=== PATIENT | female | born 1970 | race Caucasian/White ===

== ENCOUNTER → 2020-10-24 10:50 | Outpatient (CLI) | payer BC, SELFPAY ==
--- NOTE | ~2020-10-24 | US_ITS ---
EXAMINATION: US soft tissue abdomen EXAM DATE: 10/24/2020 11:34 INDICATION: Intra-abdominal and pelvic swelling, mass and lump, TECHNIQUE: Multiple grayscale and Doppler images of the right upper quadrant soft tissue region were obtained (by a technologist who performed the scan) and subsequently reviewed. There is no prior cally dy for comparison. FINDINGS: Scanning along the right upper quadrant anterior symptomatic region demonstrates no evidence of abdom inal wall defect, hernia or encapsulated lipoma. Imaging also performed during Valsalva maneuvers . A rtifact from bowel gas identified deep to the abdominal wall. IMPRESSION: 1. Unremarkable right anterior abdominal soft tissue ultrasound. Reviewed, dictated and finalized at location A.
--- NOTE | ~2020-10-24 | US_ITS ---
EXAMINATION: US thyroid DATE: 10/24/2020 11:23 INDICATION: Enlarged thyroid. TECHNIQUE: Multiple ultrasound images of the thyroid were obtained. COMPARISON: None. FINDINGS: The right thyroid lobe measures 4.6 x 1.3 x 1.2 cm. The left thyroid lobe measures 4.9 x 3.0 x 2.8 c m. In the left thyroid lobe, there is a 3.3 cm solid, hypoechoic, [id number] nodule with smooth margin without echogenic foci (TI-RADS TR4). IMPRESSION: 1. Left thyroid nodule. Ultrasound-guided fine-needle aspiration is recommended. Reviewed, dictated and finalized at location A. IMPRESSION: 1. Left thyroid nodule. Ultrasound-guided fine-needle aspiration is recommended .
== END ==
DX: R19.00 Intra-abdominal and pelvic swelling, mass and lump, unspecified site (principal); E04.1 Nontoxic single thyroid nodule
CPT/HCPCS: 76536; 76705